=== PATIENT | female | born 1940 | race Caucasian/White ===

== ENCOUNTER 2017-11-28 04:21 | Inpatient (IN) | payer MEDICARE, OTHER ==
[~2017-11-28] VITALS: Ht 162.6 cm; Wt 95.0 kg
[~2017-11-28 04:21] MED LIST: ALEN70TA5 PO; ATOR10TA9 PO; BIOT1CAP3 PO; ENOX40SY4 SQ; FENO160T PO; HYDR-3240 PO; LEVO50TA5 PO; LISI-170 PO; POLY17PO5 PO; SENN1TAB7 PO
[2017-11-28] MEDS ORDERED: OMNIPAQUE 350 MG/ML, 100ML BOTTLE ONE (05:19)
[2017-11-28 05:51] LABS: BASOPHILS # (AUTO) 0.04 x10^3/uL (0-0.1); BASOPHILS % (AUTO) 1 % (0-1); EOSINOPHILS # (AUTO) 0.34 x10^3/uL (0-0.4); EOSINOPHILS % (AUTO) 4 % (1-7); LYMPHOCYTES # (AUTO) 1.73 x10^3/uL (1-3.4); LYMPHOCYTES % (AUTO) 22 % (22-44); MD NO; MEAN CORPUSCULAR HEMOGLOBIN 31.2 pg (27.0-34.8); MEAN CORPUSCULAR HGB CONC 33.2 g/dL (32.4-35.8); MEAN CORPUSCULAR VOLUME 93.8 fL (80-100); MEAN PLATELET VOLUME 9.1 fL (7.4-10.4); MONOCYTES # (AUTO) 0.86 x10^3/uL (0.2-0.8); MONOCYTES % (AUTO) 11 % (2-9); NEUTROPHILS # (AUTO) 4.97 x10^3/uL (1.8-6.8); NEUTROPHILS % (AUTO) 63 % (42-75); PLATELET COUNT 509 x10^3/uL (130-400); RED BLOOD COUNT 3.55 x10^6/uL (3.82-5.3); RED CELL DISTRIBUTION WIDTH 14.4 % (9.6-15.2)
[2017-11-28 06:03] LABS: ALBUMIN 2.6 g/dL (3.4-5.0); ANION GAP 7 mmol/L (5-15); CALCIUM 9.6 mg/dL (8.5-10.1); CHLORIDE 107 mmol/L (98-107); CREATININE 1.01 mg/dL (0.55-1.02)
[2017-11-28 06:39] LABS: INTERNATIONAL NORMALIZED RATIO 1.15 (0.93-1.1); PROTHROMBIN TIME 11.8 Seconds (9.6-11.5)
[2017-11-28] MEDS ORDERED: HEPARIN 5,000 UNITS/ML, 1ML IV ONE (07:30)
[2017-11-28] MEDS ORDERED: POLYETHYLENE GLYCOL 17 GM PACKET PO PRN (07:30)
[2017-11-28] MEDS ORDERED: ACETAMINOPHEN 325 MG TABLET PO PRN (07:30)
[2017-11-28] MEDS ORDERED: DOCUSATE 100 MG CAPSULE PO PRN (07:30)
[2017-11-28] MEDS ORDERED: HEPARIN 25,000 UNITS/500ML PMX 500 ML IV PRN (07:30)
[2017-11-28] MEDS ORDERED: hydrALAzine 20 MG/ML, 1ML IVPush PRN (07:30)
[2017-11-28] MEDS ORDERED: ONDANSETRON 2MG/ML, 2ML IVPush PRN (07:30)
[2017-11-28] MEDS ORDERED: HEPARIN 5,000 UNITS/ML, 1ML ONE (07:47)
[2017-11-28] MEDS ORDERED: HEPARIN 25,000 UNITS/500ML PMX 500 ML ONE (07:47)
[2017-11-28 07:57] LABS: TROPONIN I < 0.015 ng/mL (0.000-0.045)
[2017-11-28] MEDS ORDERED: BIOTIN 1000 MG PO SCH (09:00)
[2017-11-28 09:37] LABS: MICROSCOPIC NOT IND
[2017-11-28 09:39] LABS: CULTURE INDICATED? NO
[2017-11-28] MEDS ORDERED: LISINOPRIL 20 MG TABLET ONE (09:46)
[2017-11-28] MEDS: LEVOTHYROXINE 50 MCG TABLET PO SCH (10:30)
[2017-11-28] MEDS: FENOFIBRATE 145 MG TABLET PO SCH (10:30)
[2017-11-28] MEDS: LISINOPRIL 20 MG TABLET PO SCH (10:31)
[2017-11-28 14:35] LABS: TROPONIN I < 0.015 ng/mL (0.000-0.045)
[2017-11-28 15:30] VITALS: BP 109/72
[2017-11-28] MEDS: SODIUM CHLORIDE 0.9% 1,000 ML IV SCH (15:32)
[2017-11-28 20:19] VITALS: BP 99/64
[2017-11-28] MEDS: HEPARIN 5,000 UNITS/ML, 1ML IV PRN (22:28)
[2017-11-28] MEDS: ATORVASTATIN 10 MG TABLET PO SCH (22:28)
[2017-11-29] MEDS: SODIUM CHLORIDE 0.9% 1,000 ML IV SCH (03:33)
[2017-11-29 03:38] VITALS: BP 114/63
[2017-11-29 04:54] LABS: ANION GAP 8 mmol/L (5-15); CHLORIDE 110 mmol/L (98-107); CREATININE 0.75 mg/dL (0.55-1.02)
[2017-11-29] MEDS: HEPARIN 5,000 UNITS/ML, 1ML IV PRN (05:26)
[2017-11-29] MEDS: LEVOTHYROXINE 50 MCG TABLET PO SCH (05:36)
[2017-11-29 07:59] VITALS: BP 115/74
[2017-11-29] MEDS: FENOFIBRATE 145 MG TABLET PO SCH (09:16)
[2017-11-29] MEDS: LISINOPRIL 20 MG TABLET PO SCH (09:16)
[2017-11-29] MEDS: APIXABAN 5 MG TABLET PO SCH ×2 (10:43→20:31)
[2017-11-29 12:50] VITALS: BP 111/70
[2017-11-29 19:59] VITALS: BP 99/64
[2017-11-29] MEDS: ATORVASTATIN 10 MG TABLET PO SCH (20:31)
[2017-11-30 01:36] VITALS: BP 108/61
[2017-11-30] MEDS ORDERED: LEVOTHYROXINE 25 MCG TABLET ONE (05:27)
[2017-11-30] MEDS: LEVOTHYROXINE 50 MCG TABLET PO SCH (05:29)
[2017-11-30 08:42] VITALS: BP 105/51
[2017-11-30] MEDS: APIXABAN 5 MG TABLET PO SCH (09:08)
[2017-11-30] MEDS: LISINOPRIL 20 MG TABLET PO SCH (09:08)
[2017-11-30] MEDS: FENOFIBRATE 145 MG TABLET PO SCH (09:08)
[2017-11-30] MEDS ORDERED: APIX5TAB PO (11:41)
[2017-11-30 12:49] VITALS: BP 95/61
[2017-11-30 16:21] VITALS: BP 100/61
[2017-12-06] MEDS ORDERED: APIXABAN 5 MG TABLET PO SCH (09:00)
== END 2017-11-30 17:07 | DRG 299 ==
LOC: ED 05:24 → SUATTDRO 07:15 → EDIP 07:17 → 4WST 13:56 → 4NOR 11-30 05:17
PROVIDERS: ADMIT Hospitalist; ATTEND Hospitalist
DX: I82.411 Acute embolism and thrombosis of right femoral vein (principal); I26.99 Other pulmonary embolism without acute cor pulmonale; J84.9 Interstitial pulmonary disease, unspecified; D64.9 Anemia, unspecified; I35.8 Other nonrheumatic aortic valve disorders; E03.9 Hypothyroidism, unspecified; E66.9 Obesity, unspecified; E78.5 Hyperlipidemia, unspecified; I12.9 Hypertensive chronic kidney disease with stage 1 through stage 4 chronic kidney disease, or unspecified chronic kidney disease; N18.9 Chronic kidney disease, unspecified; Z68.36 Body mass index [BMI] 36.0-36.9, adult; Z68.35 Body mass index [BMI] 35.0-35.9, adult; Z79.01 Long term (current) use of anticoagulants; Z88.5 Allergy status to narcotic agent
CPT/HCPCS: 36415; 71275; 80048; 81003; 82040; 83735; 84100; 84484; 85025; 85520; 85610; 85730; 93005; 93306; J1644; Q9967; J7030

== ENCOUNTER → 2018-09-17 | Outpatient (CLI) | payer MEDICARE, OTHER ==
[~2018-09-17] MED LIST changes: +APIX5TAB PO; -SENN1TAB7 PO; +SENN1TAB8 PO
== END | disposition home or self-care (01) ==
LOC: CFH 08:17
PROVIDERS: ATTEND Family Medicine
DX: M79.602 Pain in left arm (principal); E11.9 Type 2 diabetes mellitus without complications; I50.9 Heart failure, unspecified; J44.9 Chronic obstructive pulmonary disease, unspecified

== ENCOUNTER → 2018-10-07 | Outpatient (CLI) | payer MEDICARE, OTHER | END | disposition home or self-care (01) | LOC: RAD 06:47 | PROVIDERS: ATTEND Family Medicine | DX: M25.412 Effusion, left shoulder (principal) ==

== ENCOUNTER 2019-09-06 10:41 | Outpatient (CLI) | payer MEDICARE, OTHER ==
[~2019-09-06 10:41] MED LIST changes: -ALEN70TA5 PO; +ALEN70TA6 PO; +SENN-177 PO; -SENN1TAB8 PO
== END 2019-09-06 23:59 | disposition home or self-care (01) ==
LOC: RAD 10:41
PROVIDERS: ATTEND Family Medicine
DX: M79.89 Other specified soft tissue disorders (principal)

== ENCOUNTER 2021-04-14 05:58 | Emergency (ER) | payer MEDICARE, OTHER ==
[~2021-04-14] VITALS: Ht 162.6 cm; Wt 95.0 kg
[~2021-04-14 05:58] MED LIST changes: -ALEN70TA6 PO; +ALEN70TA77 PO; +HYDR-2214 PO; -HYDR-3240 PO
--- NOTE | 2021-04-14 06:20 | NUR ---
pt states she was gardening and had an unknown insect bite to her left neck, pt has no sob/difficulty breathing, speaking in full sentences. pt states she has been taking benadryl q 4 hours but still feels itchiness all over her body. denies any pain. redness noted on her upper chest as well
[2021-04-14] MEDS ORDERED: CEFAZOLIN PMX 1GM/50ML 50 ML ONE (06:30)
[2021-04-14] MEDS ORDERED: SODIUM CHLORIDE FLUSH 10ML SYR IVF ONE (06:30)
[2021-04-14] MEDS ORDERED: DIPHENHYDRAMINE 50 MG/ML, 1ML IVPush ONE (06:30)
[2021-04-14] MEDS ORDERED: DIPHENHYDRAMINE 50 MG/ML, 1ML ONE (06:30)
[2021-04-14] MEDS ORDERED: DEXAMETHASONE 4 MG/ML, 1ML IVPush ONE (06:30)
[2021-04-14] MEDS ORDERED: CEFAZOLIN PMX 1GM/50ML 50 ML IV ONE (06:30)
[2021-04-14] MEDS ORDERED: DEXAMETHASONE 4 MG/ML, 5ML ONE (06:30)
--- NOTE | 2021-04-14 06:57 | NUR ---
PER ERP, NO BC BEFORE ABX
[2021-04-14 07:00] LABS: BASOPHILS % (AUTO) 0 % (0-1); EOSINOPHILS % (AUTO) 7 % (1-7); LYMPHOCYTES % (AUTO) 21 % (22-44); MEAN CORPUSCULAR HEMOGLOBIN 31.5 pg (27.0-34.8); MEAN CORPUSCULAR HGB CONC 33.2 g/dL (32.4-35.8); MEAN PLATELET VOLUME 9.2 fL (7.4-10.4); MONOCYTES % (AUTO) 9 % (2-9); NEUTROPHILS % (AUTO) 63 % (42-75); PLATELET COUNT 244 x10^3/uL (130-400); RED BLOOD COUNT 4.68 x10^6/uL (3.82-5.3); RED CELL DISTRIBUTION WIDTH 14.3 % (9.6-15.2)
--- NOTE | 2021-04-14 07:02 | NUR ---
REPORT TO DINORAH SRINIVASAN
--- NOTE | 2021-04-14 07:06 | NUR ---
PATIENT AMBULATED TO BATHROOM WITH STEADY GAIT.
[2021-04-14 07:08] LABS: ALBUMIN 3.2 g/dL (3.4-5.0); ANION GAP 5 mmol/L (5-15); CALCIUM 9.1 mg/dL (8.5-10.1); CHLORIDE 112 mmol/L (98-107); CREATININE 0.87 mg/dL (0.55-1.02)
--- NOTE | 2021-04-14 07:13 | NUR ---
PATIENT AMBULATED BACK TO [facility], CONNECTED TO MONITORS, VSS, CALL LIGHT WITHIN REACH, NO FURTHER NEEDS AT THIS TIME. WAITING FOR ABX TO FINISH.
[2021-04-14 07:32] VITALS: BP 131/41
== END 2021-04-14 08:39 | disposition home or self-care (01) ==
LOC: ED 08:20
DX: L03.221 Cellulitis of neck (principal); L03.313 Cellulitis of chest wall; I10 Essential (primary) hypertension; E78.5 Hyperlipidemia, unspecified
CPT/HCPCS: 36415; 80048; 82040; 85025; 96365; 96375; 99284; J0690; J1100; J1200